=== PATIENT | female | born 1960 | race Caucasian/White ===

== ENCOUNTER 2017-10-11 08:27 | Inpatient (IN) | payer MEDICAID ==
[~2017-10-11] VITALS: Ht 162.6 cm; Wt 82.6 kg
[2017-10-11] MEDS ORDERED: OXYC-662 GT (08:37)
[2017-10-11] MEDS ORDERED: SODIUM CHLORIDE 0.9% 500 ML IV ONE (08:56)
[2017-10-11 09:17] LABS: BASOPHILS % 0.2 % (0.0-2.0); LYMPHOCYTES % 13.2 % (20.0-50.0); MEAN CORPUSCULAR HEMOGLOBIN 37.1 pg (28.0-32.0); MEAN CORPUSCULAR VOLUME 104.1 fL (81.0-99.0); MONOCYTES % 8.4 % (2.0-8.0); NEUTROPHILS % 78.2 % (40.0-76.0); PLATELET 105 x1000/uL (130-400); RED BLOOD CELL COUNT 2.98 mill/uL (4.2-5.4); RED CELL DISTRIBUTION WIDTH 12.3 % (11.6-14.6)
[2017-10-11 09:32] LABS: CHLORIDE 97 mEq/L (98-107)
[2017-10-11 09:52] LABS: AMMONIA 19 uMol/L (<32)
[2017-10-11] MEDS ORDERED: PHENYTOIN SODIUM 1,000 MG in SODIUM CHLORIDE 0.9% 100 ML IV ONE (10:45)
[2017-10-11 10:53] LABS: CLARITY URINE CLEAR (CLEAR); COLOR URINE YELLOW (YELLOW); KETONES URINE NEGATIVE (NEGATIVE); LEUKOCYTE ESTERASE URINE 2+ (NEGATIVE); NITRITE URINE NEGATIVE (NEGATIVE); OCCULT BLOOD URINE NEGATIVE (NEGATIVE); PROTEIN URINE NEGATIVE (NEGATIVE); SPECIFIC GRAVITY URINE 1.021 (1.005-1.030); UROBILINOGEN URINE 0.2 E.U./dL (0.2-1.0)
[2017-10-11] MEDS ORDERED: CEFTRIAXONE 1 G PREMIX 50 ML IV ONE (11:00)
[2017-10-11] MEDS ORDERED: ENOXAPARIN 40MG/0.4ML SYR SUBCUT SCH (12:15)
[2017-10-11] MEDS ORDERED: LORAZEPAM 2MG/ML CPJ IV PRN (12:15)
[2017-10-11] MEDS ORDERED: MAGNESIUM/ALUMINUM HYDROXIDE/SIMETHICONE 30ML UDC PO PRN (12:15)
[2017-10-11] MEDS ORDERED: DOCUSATE SODIUM 100MG CAPSULE PO PRN (12:15)
[2017-10-11] MEDS ORDERED: ACETAMINOPHEN 325MG TABLET PO PRN (12:15)
[2017-10-11] MEDS ORDERED: GUAIFENESIN 200MG/10ML SUGAR FREE UDC PO PRN (12:15)
[2017-10-11] MEDS ORDERED: KETOROLAC 15MG/ML VIAL IV PRN (12:15)
[2017-10-11] MEDS ORDERED: CLONIDINE 0.1MG TABLET PO PRN (12:15)
[2017-10-11] MEDS ORDERED: DIPHENHYDRAMINE 50MG/ML VIAL IV PRN (12:15)
[2017-10-11] MEDS ORDERED: ONDANSETRON HCL 4MG/2ML VIAL IV PRN (12:15)
[2017-10-11] MEDS ORDERED: ZOLPIDEM TARTRATE 5MG TABLET PO PRN (12:15)
[2017-10-11] MEDS ORDERED: NA PHOS,M-B/NA PHOS,DI-BA ENEMA 118ML PR PRN (12:15)
[2017-10-11] MEDS ORDERED: IPRATROPIUM/ALBUTEROL 0.5-3(2.5)MG/3ML NEB INH PRN (12:15)
[2017-10-11 15:15] VITALS: BP 121/66
[2017-10-11 16:00] VITALS: BP 104/49
[2017-10-11] MEDS: ENOXAPARIN 30MG/0.3ML SYR SUBCUT SCH (18:30)
[2017-10-11 20:00] VITALS: BP 118/64
[2017-10-11] MEDS ORDERED: LEVETIRACETAM 500MG PREMIX 100 ML IV SCH (21:00)
[2017-10-11] MEDS: FAMOTIDINE 20MG TABLET PO SCH (21:13)
[2017-10-11] MEDS: LEVETIRACETAM 500 MG in SODIUM CHLORIDE 0.9% 100 ML IV SCH (21:18)
[2017-10-11 21:30] LABS: CREATINE KINASE 129 IU/L (26-192)
[2017-10-11 21:31] LABS: CREATINE KINASE MB FRACTION 3.1 ng/mL (0.5-3.6)
[2017-10-12] VITALS: BP 108/64
[2017-10-12 04:00] VITALS: BP 113/61
[2017-10-12] MEDS: ENOXAPARIN 30MG/0.3ML SYR SUBCUT SCH (05:28)
[2017-10-12 07:22] LABS: CREATINE KINASE 117 IU/L (26-192)
[2017-10-12 07:23] LABS: CREATINE KINASE MB FRACTION 2.6 ng/mL (0.5-3.6)
[2017-10-12 08:00] VITALS: BP 105/66
[2017-10-12] MEDS: LEVETIRACETAM 500 MG in SODIUM CHLORIDE 0.9% 100 ML IV SCH (08:40)
[2017-10-12] MEDS: FAMOTIDINE 20MG TABLET PO SCH (08:41)
[2017-10-12] MEDS ORDERED: PHENYTOIN SODIUM EXTENDED 100MG CAPSULE PO NR (10:45)
[2017-10-12 10:50] VITALS: BP 105/66
[2017-10-12] MEDS ORDERED: CEFTRIAXONE 1 G PREMIX 50 ML IV SCH (11:00)
== END 2017-10-12 12:17 | disposition home or self-care (01) | DRG 52 ==
LOC: ER 08:44 → 8WST 11:18 → EDBEDREQ 11:22 → EDBEDREQSVC 11:22 → ENRESERV 14:08 → 8WST 17:56
PROVIDERS: ADMIT Internal Medicine; ATTEND Internal Medicine
DX: G93.40 Encephalopathy, unspecified (principal); E87.1 Hypo-osmolality and hyponatremia; N39.0 Urinary tract infection, site not specified; D64.9 Anemia, unspecified; Z85.828 Personal history of other malignant neoplasm of skin; Z85.841 Personal history of malignant neoplasm of brain; Z92.21 Personal history of antineoplastic chemotherapy; Z79.899 Other long term (current) drug therapy
CPT/HCPCS: 36415; 51702; 70450; 70551; 71045; 72070; 72100; 72125; 72170; 80053; 80061; 80185; 81003; 82140; 82550; 82553; 82962; 83036; 83605; 83690; 83735; 83880; 84484; 85025; 85610; 87040; 87077; 87086; 87186; 93005; 93970; 96361; 96365; 96368; 99291; J0696; J1165; J1650; J1953; J7040; J7050